=== PATIENT | female | born 1995 | race Caucasian/White ===

== ENCOUNTER 2021-04-07 12:53 | Day surgery (SDCO) | payer OTHER ==
[~2021-04-07] VITALS: Ht 170.2 cm; Wt 88.5 kg
[2021-04-07 13:36] LABS: BASOPHIL 0.2 % (0-2); EOSINOPHIL 0.2 % (0-5); HGB 12.4 g/dl (12.5-16.0); LYMPHOCYTE 15.1 % (15-48); MCHC 33.5 g/dL (32.0-36.0); MCV 89.4 fL (78.0-100.0); MONOCYTE 12.1 % (0-12); MPV 9.2 fL (6.0-9.5); NEUTROPHIL 72.1 % (41-80); NRBC 0; PLT 176 K/uL (150-400); RBC 4.14 M/uL (4.20-5.40); RDW 12.2 % (11.5-14.0)
[2021-04-07 13:54] LABS: BILIRUBIN - TOTAL 0.5 mg/dL (0.2-1.0); BUN/CREAT RATIO (CALC) 9.3 RATIO; CREATININE 0.43 mg/dL (0.51-0.95); GLOBULIN (CALCULATION) 3.8 g/dL; POTASSIUM 3.4 mmol/L (3.5-5.1); TOTAL PROTEIN 6.8 g/dL (6.4-8.2)
[2021-04-07 19:15] LABS: BASOPHIL 0.2 % (0-2); EOSINOPHIL 0 % (0-5); HCT 34.3 % (37.0-47.0); HGB 11.5 g/dl (12.5-16.0); LYMPHOCYTE 14.8 % (15-48); MCH 30.2 pg (25.0-31.0); MCHC 33.5 g/dL (32.0-36.0); MONOCYTE 10.6 % (0-12); MPV 9.3 fL (6.0-9.5); NEUTROPHIL 73.9 % (41-80); NRBC 0; PLT 166 K/uL (150-400); RBC 3.81 M/uL (4.20-5.40); RDW 12.1 % (11.5-14.0); WBC 6.4 K/uL (4.0-10.5)
[2021-04-07 22:23] LABS: INR 1.06 (0.9-1.2); PROTHROMBIN TIME 13.2 SECONDS (11.8-13.4)
[2021-04-07 22:24] LABS: PTT 30.8 SECONDS (24.4-34.7)
[2021-04-08 22:50] LABS: BASOPHIL 0.2 % (0-2); EOSINOPHIL 0 % (0-5); HCT 31.7 % (37.0-47.0); HGB 10.7 g/dl (12.5-16.0); LYMPHOCYTE 16.8 % (15-48); MCH 30.4 pg (25.0-31.0); MCHC 33.8 g/dL (32.0-36.0); MCV 90.1 fL (78.0-100.0); MONOCYTE 11.1 % (0-12); MPV 9.2 fL (6.0-9.5); NEUTROPHIL 71.4 % (41-80); NRBC 0; PLT 150 K/uL (150-400); RBC 3.52 M/uL (4.20-5.40); RDW 12.2 % (11.5-14.0); WBC 5.7 K/uL (4.0-10.5)
[2021-04-08 23:07] LABS: ALBUMIN 2.5 g/dL (3.4-5.0); BILIRUBIN - TOTAL 0.5 mg/dL (0.2-1.0); CREATININE 0.3 mg/dL (0.51-0.95); GLOBULIN (CALCULATION) 3.2 g/dL; POTASSIUM 3.4 mmol/L (3.5-5.1); TOTAL PROTEIN 5.7 g/dL (6.4-8.2)
[2021-04-09] MEDS ORDERED: PRENATAL FORMU1 EACH PO (18:26)
[2021-04-09] MEDS ORDERED: ASPIRIN EC81 MG PO (18:27)
[2021-04-09] MEDS ORDERED: MUCINEX 600MG600 MG PO (18:45)
[2021-04-09] MEDS ORDERED: ACETAMINOPHEN325 MG PO (18:45)
[2021-04-09] MEDS ORDERED: VITAMIN D325 MC1 PO (18:45)
[2021-04-09] MEDS ORDERED: FEOSOL325 MG PO (18:45)
== END 2021-04-09 19:15 | disposition home or self-care (01) ==
LOC: FER 12:53 → FOB 19:54
PROVIDERS: Internal Medicine; ADMIT Specialist
DX: O99.891 Other specified diseases and conditions complicating pregnancy (principal); M54.5 Low back pain; R07.9 Chest pain, unspecified; R10.13 Epigastric pain; Z3A.32 32 weeks gestation of pregnancy; O98.513 Other viral diseases complicating pregnancy, third trimester; U07.1 COVID-19; O99.613 Diseases of the digestive system complicating pregnancy, third trimester; K30 Functional dyspepsia
CPT/HCPCS: 36415; 76805; 80053; 82731; 83605; 83690; 85025; 85384; 85610; 85730; 86850; 86900; 86901; 86922; 93005; 94010; G0378; J0702; J3411; J3475; J7120

== ENCOUNTER 2021-05-24 07:00 | Inpatient (IN) | payer OTHER ==
[~2021-05-24 07:00] MED LIST: ACETAMINOPHEN325 MG PO; ASPIRIN EC81 MG PO; FEOSOL325 MG PO; MUCINEX 600MG600 MG PO; PRENATAL FORMU1 EACH PO; VITAMIN D325 MC1 PO
[2021-05-24 10:56] LABS: HCT 36.9 % (37.0-47.0); HGB 12.3 g/dl (12.5-16.0); MCH 29.7 pg (25.0-31.0); MCHC 33.3 g/dL (32.0-36.0); MCV 89.1 fL (78.0-100.0); MPV 10.1 fL (6.0-9.5); RBC 4.14 M/uL (4.20-5.40); RDW 12.3 % (11.5-14.0); WBC 8.2 K/uL (4.0-10.5)
[2021-05-24 10:56] LABS: BILIRUBIN NEGATIVE (NEGATIVE); BLOOD NEGATIVE Ery/uL (NEGATIVE); CLARITY CLEAR (CLEAR); COLOR YELLOW (YELLOW); GLUCOSE (U) NORMAL (NORMAL); LEUKOCYTES 1+ Leu/uL (NEGATIVE); NITRITE NEGATIVE (NEGATIVE); PROTEIN NEGATIVE (NEGATIVE); UROBILINOGEN 0.2 mg/dL (0.2-1.0)
[2021-05-24 11:41] LABS: BACTERIA 1+
[2021-05-25 06:19] LABS: HCT 23.3 % (37.0-47.0); MCH 30.1 pg (25.0-31.0); MPV 9.8 fL (6.0-9.5); RBC 2.56 M/uL (4.20-5.40); RDW 12.5 % (11.5-14.0); WBC 10.4 K/uL (4.0-10.5)
[2021-05-25 06:24] LABS: HGB 7.7 g/dl (12.5-16.0)
[2021-05-25] MEDS ORDERED: FEOSOL325 MG PO (07:28)
[2021-05-25] MEDS ORDERED: PERCOCET 5-3251 EACH PO (07:28)
[2021-05-25] MEDS ORDERED: PRENATAL FORMU1 EACH PO (07:28)
[2021-05-25] MEDS ORDERED: MOTRIN600 MG PO (07:28)
[2021-05-25] MEDS ORDERED: COLACE100 MG PO (07:28)
== END 2021-05-26 12:02 | disposition home or self-care (01) | DRG 787 ==
LOC: FOB 07:00
PROVIDERS: Obstetrics & Gynecology; ADMIT Specialist
PROC: 10D00Z1 Extraction of Products of Conception, Low, Open Approach (ICD-10-PCS; principal; 2021-05-24 09:00)
DX: O26.893 Other specified pregnancy related conditions, third trimester (principal); D62 Acute posthemorrhagic anemia; O72.1 Other immediate postpartum hemorrhage; Z3A.39 39 weeks gestation of pregnancy; Z37.0 Single live birth; O99.03 Anemia complicating the puerperium; Z67.11 Type A blood, Rh negative; Z86.16 Personal history of COVID-19
CPT/HCPCS: 36415; 81001; 85461; 86850; 86900; 86901; J0690; J1885; J2274; J2405; J2704; J2790; J2916; J3010; J7120